=== PATIENT | male | born 2000 | race Two or more races ===

== ENCOUNTER 2019-10-19 17:45 | Emergency (ER) | payer MEDICAID, SELFPAY ==
[~2019-10-19] VITALS: Ht 180.3 cm; Wt 107.8 kg
[2019-10-19 17:47] VITALS: BP 130/73
--- NOTE | 2019-10-19 18:02 | NUR ---
THIS TECH DID EKG
--- NOTE | 2019-10-19 18:30 | NUR ---
THIS PT CAME IN FOR SUTURE REMOVAL, ERP TO BEDSIDE FOR SUTURE REMOVAL. PT HAS NO COMPLAINTS AT THIS TIME.
--- NOTE | 2019-10-19 18:49 | NUR ---
BEDSIDE REPORT GIVEN TO MONICA CURRAN.
== END 2019-10-19 18:59 | disposition home or self-care (01) ==
LOC: ED 18:50
DX: S01.01XD Laceration without foreign body of scalp, subsequent encounter (principal); R00.0 Tachycardia, unspecified; X58.XXXD Exposure to other specified factors, subsequent encounter
CPT/HCPCS: 93005; 99283